=== PATIENT | female | born 1940 | race Caucasian/White ===

== ENCOUNTER → 2016-05-26 | Outpatient (CLI) | payer MEDICARE, BC ==
[~2016-05-26] MED LIST: AMARYL4 M1 PO; COBAL1000 MCG/M IM; COLCRYS0.6 MG PO; GOOD SENSE ASPI81 M1 PO; LISINOPRIL20 MG PO; METFORMIN500 MG PO; MIRAPEX0.25 MG PO; SYNTHROID0.2 M1 PO; ULTRAM 50MG TAB50 MG PO; VICTOZA6 MG/ML SC
== END ==
LOC: LAB 16:44
DX: E11.65 Type 2 diabetes mellitus with hyperglycemia (principal); I10 Essential (primary) hypertension; M85.89 Other specified disorders of bone density and structure, multiple sites; E03.4 Atrophy of thyroid (acquired)

== ENCOUNTER → 2016-06-05 | Outpatient (CLI) | payer MEDICARE, BC | LOC: LAB 10:34 | DX: L02.818 Cutaneous abscess of other sites (principal); B95.62 Methicillin resistant Staphylococcus aureus infection as the cause of diseases classified elsewhere ==

== ENCOUNTER → 2016-08-05 | Outpatient (CLI) | payer MEDICARE, BC ==
[2015-08-27 09:58] VITALS: BP 140/77
== END ==
LOC: LAB 09:58
DX: R30.0 Dysuria (principal)

== ENCOUNTER → 2016-12-29 | Outpatient (CLI) | payer MEDICARE, BC ==
[2015-08-27 09:58] VITALS: BP 140/77
== END ==
LOC: RAD 08:07
DX: G25.81 Restless legs syndrome (principal); E11.65 Type 2 diabetes mellitus with hyperglycemia; E61.1 Iron deficiency; I10 Essential (primary) hypertension; E78.2 Mixed hyperlipidemia; M1A.9XX0 Chronic gout, unspecified, without tophus (tophi)

== ENCOUNTER → 2018-08-29 | Outpatient (CLI) | payer MEDICARE, BC ==
[2015-08-27 09:58] VITALS: BP 140/77
[2018-08-29 17:42] LABS: EOS # 0.3 (0.04-0.40); EOS % 3.6 % (1.0-5.0); HEMATOCRIT 46.6 % (37.0-47.0); HEMOGLOBIN 14.7 g/dL (12.5-16.0); LYMPH# 1.7 (1.50-4.00); MEAN CELL VOLUME 97 fl (78-100); MEAN CORPUSCULAR HEMOGLOBIN 31 pg (27-31); MEAN CORPUSCULAR HGB CONC 32 g/dL (33-37); MEAN PLATELET VOLUME 11.2 fl (7.4-10.4); MONO # 0.5 (0.20-0.80); NEU # 4.9 (1.40-6.50); PLATELET COUNT 204 K/mm3 (130-400); RED BLOOD COUNT 4.81 M/mm3 (4.10-5.30); RED CELL DISTRIBUTION WIDTH 13.8 % (11.5-14.5); WHITE BLOOD COUNT 7.4 K/mm3 (4.8-10.8)
[2018-08-29 18:28] LABS: ALBUMIN 3.8 g/dL (3.4-4.8); CALCIUM 10.1 mg/dL (8.4-10.2); TOTAL BILIRUBIN 0.3 mg/dL (0.2-1.2)
[2018-08-29 19:19] LABS: URINE COLOR YELLOW
[2018-08-29 19:20] LABS: URINE APPEARANCE CLEAR; URINE PROTEIN(semi-quant) TRACE mg/dL (NEGATIVE)
[2018-08-29 19:21] LABS: URINE BILIRUBIN NEGATIVE (NEGATIVE); URINE BLOOD NEGATIVE (NEGATIVE); URINE GLUCOSE NEGATIVE (NEGATIVE); URINE KETONE NEGATIVE (NEGATIVE); URINE LEUKOCYTE ESTERASE NEGATIVE (NEGATIVE); URINE NITRATE NEGATIVE (NEGATIVE); URINE UROBILINOGEN NORMAL (NORMAL); URINE WBC 0-1 /hpf (0-3)
[2018-08-29 19:23] LABS: ERYTHROCYTE SEDIMENTATION RATE 11 mm/hr (0-30)
[2018-08-30 16:44] LABS: CREATININE OTHER SOURCE 51 mg/dL (())
== END ==
LOC: LAB 17:26
PROVIDERS: Internal Medicine
DX: E11.9 Type 2 diabetes mellitus without complications (principal); E78.5 Hyperlipidemia, unspecified; E03.9 Hypothyroidism, unspecified

== ENCOUNTER → 2018-09-26 | Outpatient (CLI) | payer MEDICARE, BC ==
[2015-08-27 09:58] VITALS: BP 140/77
[2018-09-26 14:35] LABS: CALCIUM 9.9 mg/dL (8.3-10.5); POTASSIUM 4.3 mmol/L (3.5-5.1)
== END ==
LOC: LAB 14:06
PROVIDERS: Internal Medicine
DX: E11.9 Type 2 diabetes mellitus without complications (principal); I10 Essential (primary) hypertension

== ENCOUNTER → 2019-02-16 | Outpatient (CLI) | payer MEDICARE, BC ==
[2015-08-27 09:58] VITALS: BP 140/77
[2019-02-16 16:59] LABS: EOS # 0.2 (0.04-0.40); EOS % 2.6 % (1.0-5.0); HEMATOCRIT 49.4 % (37.0-47.0); HEMOGLOBIN 15.7 g/dL (12.5-16.0); LYMPH# 2.5 (1.50-4.00); MEAN CELL VOLUME 96 fl (78-100); MEAN CORPUSCULAR HEMOGLOBIN 30 pg (27-31); MEAN CORPUSCULAR HGB CONC 32 g/dL (33-37); MEAN PLATELET VOLUME 11.6 fl (7.4-10.4); MONO # 0.7 (0.20-0.80); NEU # 4.9 (1.40-6.50); PLATELET COUNT 277 K/mm3 (130-400); RED BLOOD COUNT 5.17 M/mm3 (4.10-5.30); RED CELL DISTRIBUTION WIDTH 12.6 % (11.5-14.5); WHITE BLOOD COUNT 8.4 K/mm3 (4.8-10.8)
[2019-02-16 17:03] LABS: POTASSIUM 4.2 mmol/L (3.5-5.1)
[2019-02-16 17:04] LABS: ALBUMIN 4.2 g/dL (3.4-4.8)
[2019-02-16 17:06] LABS: TOTAL PROTEIN 7.6 g/dL (6.2-8.1)
[2019-02-16 17:08] LABS: TOTAL BILIRUBIN 0.4 mg/dL (0.2-1.2)
[2019-02-16 17:13] LABS: MAGNESIUM 1.64 mg/dL (1.60-2.60)
== END ==
LOC: LAB 16:22
PROVIDERS: Internal Medicine
DX: E11.9 Type 2 diabetes mellitus without complications (principal); I10 Essential (primary) hypertension; E03.9 Hypothyroidism, unspecified; E78.5 Hyperlipidemia, unspecified

== ENCOUNTER → 2019-06-16 | Outpatient (CLI) | payer MEDICARE, BC ==
[2015-08-27 09:58] VITALS: BP 140/77
== END ==
LOC: RAD 15:30
DX: M85.872 Other specified disorders of bone density and structure, left ankle and foot (principal); R60.9 Edema, unspecified

== ENCOUNTER → 2020-05-06 | Outpatient (CLI) | payer MEDICARE, BC ==
[2015-08-27 09:58] VITALS: BP 140/77
[2020-05-06 14:49] LABS: EOS # 0.2 (0.04-0.40); EOS % 3.7 % (1.0-5.0); HEMATOCRIT 45.4 % (37.0-47.0); HEMOGLOBIN 14.3 g/dL (12.5-16.0); LYMPH# 1.8 (1.50-4.00); MEAN CELL VOLUME 94 fl (78-100); MEAN CORPUSCULAR HEMOGLOBIN 30 pg (27-31); MEAN CORPUSCULAR HGB CONC 32 g/dL (33-37); MEAN PLATELET VOLUME 11.6 fl (7.4-10.4); MONO # 0.5 (0.20-0.80); NEU # 3.4 (1.40-6.50); PLATELET COUNT 213 K/mm3 (130-400); RED BLOOD COUNT 4.81 M/mm3 (4.10-5.30); RED CELL DISTRIBUTION WIDTH 13.4 % (11.5-14.5); WHITE BLOOD COUNT 5.9 K/mm3 (4.8-10.8)
[2020-05-06 14:52] LABS: POTASSIUM 4.3 mmol/L (3.5-5.1)
[2020-05-06 14:53] LABS: CALCIUM 9.9 mg/dL (8.3-10.5)
[2020-05-06 14:55] LABS: TOTAL PROTEIN 7.1 g/dL (6.2-8.1)
[2020-05-06 14:56] LABS: TOTAL BILIRUBIN 0.4 mg/dL (0.2-1.2)
[2020-05-06 15:12] LABS: URINE APPEARANCE CLEAR; URINE BILIRUBIN NEGATIVE (NEGATIVE); URINE BLOOD NEGATIVE (NEGATIVE); URINE COLOR YELLOW; URINE GLUCOSE 50 mg/dL mg/dL (NEGATIVE); URINE KETONE NEGATIVE (NEGATIVE); URINE LEUKOCYTE ESTERASE TRACE (NEGATIVE); URINE NITRATE NEGATIVE (NEGATIVE); URINE PROTEIN(semi-quant) NEGATIVE (NEGATIVE); URINE UROBILINOGEN NORMAL (NORMAL)
[2020-05-06 15:13] LABS: URINE MUCUS PRESENT (NOT PRESENT)
[2020-05-06 16:03] LABS: ERYTHROCYTE SEDIMENTATION RATE 13 mm/hr (0-30)
[2020-05-07 17:36] LABS: CREATININE OTHER SOURCE 17 mg/dL (())
== END ==
LOC: LAB 14:23
PROVIDERS: Internal Medicine
DX: M10.00 Idiopathic gout, unspecified site (principal); E11.65 Type 2 diabetes mellitus with hyperglycemia; K90.9 Intestinal malabsorption, unspecified; E03.4 Atrophy of thyroid (acquired)

== ENCOUNTER → 2020-10-04 | Outpatient (CLI) | payer MEDICARE, BC ==
[2020-10-04 14:08] LABS: ALBUMIN 3.9 g/dL (3.4-4.8); POTASSIUM 4.6 mmol/L (3.5-5.1)
[2020-10-04 14:09] LABS: CALCIUM 9.6 mg/dL (8.3-10.5)
[2020-10-04 14:10] LABS: TOTAL PROTEIN 6.9 g/dL (6.2-8.1)
[2020-10-04 14:12] LABS: TOTAL BILIRUBIN 0.4 mg/dL (0.2-1.2)
== END ==
LOC: LAB 13:25
PROVIDERS: Internal Medicine
DX: E11.65 Type 2 diabetes mellitus with hyperglycemia (principal); E03.4 Atrophy of thyroid (acquired)

== ENCOUNTER → 2021-05-06 | Outpatient (CLI) | payer MEDICARE, BC ==
[2021-05-06 09:42] LABS: BASO # 0.04 K/mm3 (0.02-0.10); EOS # 0.21 K/mm3 (0.04-0.40); EOS % 4.1 % (1.0-5.0); HEMATOCRIT 46.3 % (37.0-47.0); HEMOGLOBIN 14.5 g/dL (12.5-16.0); LYMPH# 1.52 K/mm3 (1.50-4.00); MEAN CELL VOLUME 99 fl (78-100); MEAN CORPUSCULAR HEMOGLOBIN 31 pg (27-31); MEAN CORPUSCULAR HGB CONC 31 g/dL (33-37); MEAN PLATELET VOLUME 11.2 fl (7.4-10.4); MONO # 0.39 K/mm3 (0.20-0.80); NEU # 2.96 K/mm3 (1.40-6.50); PLATELET COUNT 205 K/mm3 (130-400); RED BLOOD COUNT 4.69 M/mm3 (4.10-5.30); RED CELL DISTRIBUTION WIDTH 13.1 % (11.5-14.5); WHITE BLOOD COUNT 5.1 K/mm3 (4.8-10.8)
[2021-05-06 10:00] LABS: ALBUMIN 3.9 g/dL (3.4-4.8)
[2021-05-06 10:01] LABS: POTASSIUM 4.1 mmol/L (3.5-5.1)
[2021-05-06 10:03] LABS: TOTAL PROTEIN 6.8 g/dL (6.2-8.1)
[2021-05-06 10:05] LABS: TOTAL BILIRUBIN 0.5 mg/dL (0.2-1.2)
[2021-05-06 11:35] LABS: URINE APPEARANCE CLOUDY; URINE BILIRUBIN NEGATIVE (NEGATIVE); URINE BLOOD TRACE (NEGATIVE); URINE COLOR YELLOW; URINE GLUCOSE NEGATIVE (NEGATIVE); URINE KETONE NEGATIVE (NEGATIVE); URINE LEUKOCYTE ESTERASE 2+ (NEGATIVE); URINE NITRATE NEGATIVE (NEGATIVE); URINE PROTEIN(semi-quant) 1+ (NEGATIVE); URINE UROBILINOGEN NORMAL (NORMAL); URINE WBC >50 /hpf (0-3)
[2021-05-06 12:07] LABS: ERYTHROCYTE SEDIMENTATION RATE 3 mm/hr (0-30)
== END ==
LOC: LAB 08:44
PROVIDERS: Internal Medicine
DX: E11.65 Type 2 diabetes mellitus with hyperglycemia (principal); I10 Essential (primary) hypertension; M10.00 Idiopathic gout, unspecified site; E03.4 Atrophy of thyroid (acquired); K90.9 Intestinal malabsorption, unspecified

== ENCOUNTER → 2021-09-17 | Outpatient (CLI) | payer MEDICARE, BC | LOC: LAB 13:37 | DX: E11.9 Type 2 diabetes mellitus without complications (principal) ==

== ENCOUNTER → 2023-08-16 | Outpatient (CLI) | payer MEDICARE, BC ==
[2023-08-16 15:50] LABS: ALBUMIN 4.1 g/dL (3.4-4.8)
[2023-08-16 15:51] LABS: CALCIUM 10.3 mg/dL (8.3-10.5)
[2023-08-16 15:53] LABS: TOTAL PROTEIN 7.3 g/dL (6.2-8.1)
[2023-08-16 15:54] LABS: TOTAL BILIRUBIN 0.3 mg/dL (0.2-1.2)
[2023-08-16 15:59] LABS: MAGNESIUM 2.05 mg/dL (1.60-2.60)
== END ==
LOC: LAB 15:24
PROVIDERS: Internal Medicine
DX: I10 Essential (primary) hypertension (principal); E11.65 Type 2 diabetes mellitus with hyperglycemia; M10.00 Idiopathic gout, unspecified site

== ENCOUNTER → 2023-10-08 | Outpatient (CLI) | payer MEDICARE, BC ==
[2023-10-08 09:10] LABS: ALBUMIN 3.7 g/dL (3.4-4.8)
[2023-10-08 09:13] LABS: TOTAL PROTEIN 6.4 g/dL (6.2-8.1)
[2023-10-08 09:14] LABS: TOTAL BILIRUBIN 0.5 mg/dL (0.2-1.2)
[2023-10-08 09:19] LABS: MAGNESIUM 1.84 mg/dL (1.60-2.60)
== END ==
LOC: LAB 08:39
PROVIDERS: Internal Medicine
DX: I10 Essential (primary) hypertension (principal); E11.65 Type 2 diabetes mellitus with hyperglycemia; M10.00 Idiopathic gout, unspecified site

== ENCOUNTER → 2024-01-11 | Outpatient (CLI) | payer MEDICARE, BC ==
[2024-01-11 15:25] LABS: BASO # 0.01 K/mm3 (0.02-0.10); EOS # 0.19 K/mm3 (0.04-0.40); EOS % 1.9 % (1.0-5.0); HEMATOCRIT 44.5 % (37.0-47.0); HEMOGLOBIN 14.1 g/dL (12.5-16.0); LYMPH# 1.59 K/mm3 (1.50-4.00); MEAN CELL VOLUME 96 fl (78-100); MEAN CORPUSCULAR HEMOGLOBIN 30 pg (27-31); MEAN CORPUSCULAR HGB CONC 32 g/dL (33-37); MEAN PLATELET VOLUME 10.7 fl (7.4-10.4); MONO # 0.72 K/mm3 (0.20-0.80); NEU # 7.65 K/mm3 (1.40-6.50); PLATELET COUNT 233 K/mm3 (130-400); RED BLOOD COUNT 4.64 M/mm3 (4.10-5.30); WHITE BLOOD COUNT 10.2 K/mm3 (4.8-10.8)
[2024-01-11 15:35] LABS: CALCIUM 10.1 mg/dL (8.3-10.5)
[2024-01-11 15:37] LABS: TOTAL PROTEIN 6.9 g/dL (6.2-8.1)
[2024-01-11 15:38] LABS: TOTAL BILIRUBIN 0.4 mg/dL (0.2-1.2)
[2024-01-11 15:43] LABS: MAGNESIUM 1.89 mg/dL (1.60-2.60)
== END ==
LOC: LAB 15:10
PROVIDERS: Internal Medicine
DX: I10 Essential (primary) hypertension (principal); M10.00 Idiopathic gout, unspecified site; E11.65 Type 2 diabetes mellitus with hyperglycemia

== ENCOUNTER → 2024-05-09 | Outpatient (CLI) | payer MEDICARE, BC ==
[2024-05-09 11:45] LABS: BASO # 0.02 K/mm3 (0.02-0.10); HEMATOCRIT 41.3 % (37.0-47.0); LYMPH# 1.29 K/mm3 (1.50-4.00); MEAN CELL VOLUME 99 fl (78-100); MEAN CORPUSCULAR HEMOGLOBIN 31 pg (27-31); MEAN CORPUSCULAR HGB CONC 32 g/dL (33-37); MONO # 0.54 K/mm3 (0.20-0.80); NEU # 4.78 K/mm3 (1.40-6.50); PLATELET COUNT 212 K/mm3 (130-400); RED BLOOD COUNT 4.18 M/mm3 (4.10-5.30); RED CELL DISTRIBUTION WIDTH 13.5 % (11.5-14.5); WHITE BLOOD COUNT 6.7 K/mm3 (4.8-10.8)
[2024-05-09 11:49] LABS: ALBUMIN 3.8 g/dL (3.4-4.8)
[2024-05-09 11:51] LABS: CALCIUM 9.8 mg/dL (8.3-10.5)
[2024-05-09 11:52] LABS: URINE APPEARANCE CLOUDY (CLEAR); URINE COLOR YELLOW (YELLOW)
[2024-05-09 11:54] LABS: TOTAL BILIRUBIN 0.3 mg/dL (0.2-1.2)
[2024-05-09 11:55] LABS: PH-URINE 6.5 (5.0 - 8.0); URINE BILIRUBIN NEGATIVE (NEGATIVE); URINE GLUCOSE NEGATIVE (NEGATIVE); URINE KETONE NEGATIVE (NEGATIVE); URINE PROTEIN(semi-quant) NEGATIVE (NEGATIVE)
[2024-05-09 11:56] LABS: URINE BLOOD TRACE-INTACT (NEGATIVE); URINE LEUKOCYTE ESTERASE 3+ (NEGATIVE); URINE NITRATE POSITIVE (NEGATIVE); URINE WBC >50 /hpf (0-3)
[2024-05-09 11:58] LABS: MAGNESIUM 1.82 mg/dL (1.60-2.60)
== END ==
LOC: LAB 11:29
PROVIDERS: Internal Medicine
DX: I10 Essential (primary) hypertension (principal); E11.65 Type 2 diabetes mellitus with hyperglycemia; E03.4 Atrophy of thyroid (acquired); K90.9 Intestinal malabsorption, unspecified